=== PATIENT | male | born 1975 | race Two or more races ===

== ENCOUNTER 2017-10-12 17:34 | Inpatient (IN) | payer MEDICAID ==
[~2017-10-12] VITALS: Ht 165.1 cm; Wt 80.0 kg
[2017-10-13 00:22] LABS: Basophils # (auto) 0.1 uL; Basophils % (auto) 0.5 % (0.0-2.0); Eosinophils # (auto) 0 uL; Eosinophils % (auto) 0.3 % (0.0-7.0); Hematocrit 47.7 % (41.0-53.0); Hemoglobin 16.3 g/dL (13.5-17.5); Lymphocytes # (auto) 2.2 uL; Lymphocytes % (auto) 20.5 % (10.0-50.0); Mean Corpuscular Hemoglobin 30.9 pg (28.0-32.0); Mean Corpuscular Hgb Conc. 34.2 g/dL (32.0-36.0); Mean Corpuscular Volume 90.3 fL (80.0-100.0); Monocytes # (auto) 1.1 uL; Monocytes % (auto) 10.2 % (0.0-12.0); Neutrophils # (auto) 7.2 uL; Neutrophils % (auto) 68.5 % (37.0-80.0); Nucleated Red Blood Cells % 0.2 %; Platelet Count (auto) 283 10^3/uL (140-450); Red Blood Cells 5.28 10^6/uL (4.5-5.90); Red Cell Distribution Width 13.2 % (11.8-14.3); White Blood Cell 10.6 10^3/uL (4.4-10.8)
[2017-10-13 00:32] LABS: INR 0.9 (0.9-1.15); Partial Thromboplastin Time 28.9 sec (23.78-33.04); Prothrombin Time 9.7 sec (9.27-12.13)
[2017-10-13 00:36] LABS: Albumin 3.2 g/dL (3.4-5.0); BUN/Creatinine Ratio 13.4; Calcium 8.5 mg/dL (8.5-10.1); Potassium 3.8 mmol/L (3.5-5.1)
[2017-10-13 00:38] LABS: Bilirubin, Total 0.5 mg/dL (0.2-1.0); Total Protein 7.5 g/dL (6.4-8.2)
[2017-10-13] MEDS ORDERED: ONDANSETRON HCL 4 MG/2 ML VIAL IV ONE (02:30)
[2017-10-13] MEDS ORDERED: SODIUM CHLORIDE 0.9% 1,000 ML IV ONE (02:30)
[2017-10-13] MEDS ORDERED: InsuLIN REG 1unit/0.01ml Soln (100units/ml) IV ONE (02:30)
[2017-10-13] MEDS ORDERED: ENOXAPARIN SOD 80 MG/0.8ML SYRINGE SC ONE (02:30)
[2017-10-13] MEDS ORDERED: MORPHINE SULF INJ 2 MG/ML SYRINGE 1ML ONE ×2 (02:45→03:13)
[2017-10-13] MEDS: MORPHINE SULFATE 4 MG/ML SYR/VIAL IV ONE ×2 (02:57→03:15)
[2017-10-13] MEDS ORDERED: LISINOPRIL 10 MG TAB PO ONE (04:00)
[2017-10-13] MEDS ORDERED: MORPHINE SULFATE 4 MG/ML SYR/VIAL IV PRN (04:00)
[2017-10-13] MEDS ORDERED: ACETAMINOPHEN 500 MG TAB PO PRN (04:00)
[2017-10-13] MEDS ORDERED: DEXTROSE (50%) 50ML SYRG IV PRN (04:00)
[2017-10-13] MEDS: HYDROcodone-ACET 5/325MG TAB PO PRN (05:11)
[2017-10-13] MEDS: ACCU-CHEK COMFORT CURVE STRIP VI SCH ×4 (07:19→21:54)
[2017-10-13] MEDS: InsuLIN REG 1unit/0.01ml Soln (100units/ml) SC SCH ×4 (08:30→21:54)
[2017-10-13] MEDS ORDERED: ENOXAPARIN SOD 80 MG/0.8ML SYRINGE SC SCH (10:00)
[2017-10-13] MEDS ORDERED: ceFAZolin 1GM/100ML 100 ML IV ONE (11:34)
[2017-10-13] MEDS: MORPHINE SULFATE 8mg/ml INJ SDV IV PRN ×2 (11:59→21:55)
[2017-10-13] MEDS: ONDANSETRON HCL 4 MG/2 ML VIAL IV PRN ×2 (12:00→21:55)
[2017-10-13 13:00] VITALS: BP 140/88
[2017-10-13] MEDS: SODIUM CHLORIDE 0.9% 1,000 ML IV SCH (14:30)
[2017-10-13 17:00] VITALS: BP 145/81
[2017-10-13] MEDS ORDERED: METF-370 PO (17:40)
[2017-10-13] MEDS: metFORMIN HYDROCHLORIDE 500 MG TAB PO SCH (18:10)
[2017-10-13] MEDS: APIXABAN 5 MG TAB PO SCH (21:54)
[2017-10-13 22:00] VITALS: BP 147/98
[2017-10-14 04:39] VITALS: BP 130/98
[2017-10-14] MEDS: MORPHINE SULFATE 8mg/ml INJ SDV IV PRN ×3 (05:20→19:44)
[2017-10-14] MEDS: ONDANSETRON HCL 4 MG/2 ML VIAL IV PRN ×3 (05:21→19:45)
[2017-10-14] MEDS: ACCU-CHEK COMFORT CURVE STRIP VI SCH ×4 (06:35→21:19)
[2017-10-14] MEDS: InsuLIN REG 1unit/0.01ml Soln (100units/ml) SC SCH ×4 (06:35→21:42)
[2017-10-14] MEDS: metFORMIN HYDROCHLORIDE 500 MG TAB PO SCH ×2 (06:35→17:48)
[2017-10-14 06:43] LABS: Basophils # (auto) 0 uL; Basophils % (auto) 0.3 % (0.0-2.0); Eosinophils # (auto) 0 uL; Eosinophils % (auto) 0.4 % (0.0-7.0); Hematocrit 43.3 % (41.0-53.0); Hemoglobin 15.1 g/dL (13.5-17.5); Lymphocytes # (auto) 1.7 uL; Lymphocytes % (auto) 19.5 % (10.0-50.0); Mean Corpuscular Hemoglobin 31.4 pg (28.0-32.0); Mean Corpuscular Hgb Conc. 34.8 g/dL (32.0-36.0); Mean Corpuscular Volume 90.2 fL (80.0-100.0); Monocytes # (auto) 0.9 uL; Monocytes % (auto) 10.3 % (0.0-12.0); Neutrophils % (auto) 69.5 % (37.0-80.0); Nucleated Red Blood Cells % 0.1 %; Platelet Count (auto) 244 10^3/uL (140-450); Red Cell Distribution Width 12.9 % (11.8-14.3); White Blood Cell 8.7 10^3/uL (4.4-10.8)
[2017-10-14 07:01] LABS: BUN/Creatinine Ratio 23.2; Calcium 8.4 mg/dL (8.5-10.1); Potassium 4.4 mmol/L (3.5-5.1)
[2017-10-14] MEDS: SODIUM CHLORIDE 0.9% 1,000 ML IV SCH (07:10)
[2017-10-14 08:00] VITALS: BP 146/93
[2017-10-14] MEDS ORDERED: ceFAZolin 1GM/100ML 100 ML IV ONE (08:15)
[2017-10-14] MEDS: HYDROcodone-ACET 5/325MG TAB PO PRN (08:33)
[2017-10-14 09:00] VITALS: BP 146/93
[2017-10-14] MEDS ORDERED: LISINOPRIL 10 MG TAB PO SCH (10:00)
[2017-10-14] MEDS: APIXABAN 5 MG TAB PO SCH ×2 (10:17→21:18)
[2017-10-14] MEDS ORDERED: cefTRIAXone 1GM/10ml IVPUSH 10 ML IV ONE (11:15)
[2017-10-14 13:00] VITALS: BP 128/90
[2017-10-14] MEDS: CLINDAMYCIN 600MG IV 50 ML IV SCH ×2 (14:34→21:18)
[2017-10-14 16:51] VITALS: BP 147/99
[2017-10-14 21:49] VITALS: BP 150/98
[2017-10-15] MEDS: MORPHINE SULFATE 8mg/ml INJ SDV IV PRN ×4 (01:56→21:43)
[2017-10-15] MEDS: ONDANSETRON HCL 4 MG/2 ML VIAL IV PRN ×4 (01:56→21:43)
[2017-10-15 04:57] VITALS: BP 138/96
[2017-10-15 06:03] LABS: Calcium 8.5 mg/dL (8.5-10.1); Potassium 4.2 mmol/L (3.5-5.1)
[2017-10-15] MEDS: ACCU-CHEK COMFORT CURVE STRIP VI SCH ×4 (06:10→21:23)
[2017-10-15] MEDS: SODIUM CHLORIDE 0.9% 1,000 ML IV SCH ×2 (06:10→14:56)
[2017-10-15] MEDS: metFORMIN HYDROCHLORIDE 500 MG TAB PO SCH ×2 (06:10→17:35)
[2017-10-15] MEDS: CLINDAMYCIN 600MG IV 50 ML IV SCH ×3 (06:10→15:08)
[2017-10-15] MEDS: InsuLIN REG 1unit/0.01ml Soln (100units/ml) SC SCH ×4 (06:11→21:28)
[2017-10-15] MEDS: cefTRIAXone 1GM/10ml IVPUSH 10 ML IV SCH (08:41)
[2017-10-15 09:11] VITALS: BP 136/89
[2017-10-15] MEDS: APIXABAN 5 MG TAB PO SCH ×2 (10:10→21:23)
[2017-10-15] MEDS: LISINOPRIL 10 MG TAB PO SCH (10:17)
[2017-10-15 13:15] VITALS: BP 141/83
[2017-10-15 17:16] VITALS: BP 140/86
[2017-10-15 22:00] VITALS: BP 132/84
[2017-10-16] MEDS: ONDANSETRON HCL 4 MG/2 ML VIAL IV PRN ×4 (04:04→21:26)
[2017-10-16] MEDS: MORPHINE SULFATE 8mg/ml INJ SDV IV PRN ×4 (04:05→21:26)
[2017-10-16 05:00] VITALS: BP 126/84
[2017-10-16] MEDS: CLINDAMYCIN 600MG IV 50 ML IV SCH ×3 (05:59→21:26)
[2017-10-16] MEDS: ACCU-CHEK COMFORT CURVE STRIP VI SCH ×4 (06:00→21:27)
[2017-10-16] MEDS: metFORMIN HYDROCHLORIDE 500 MG TAB PO SCH ×2 (06:02→18:41)
[2017-10-16] MEDS: InsuLIN REG 1unit/0.01ml Soln (100units/ml) SC SCH ×4 (06:07→21:27)
[2017-10-16 06:16] LABS: Potassium 4.4 mmol/L (3.5-5.1)
[2017-10-16 09:11] VITALS: BP 143/80
[2017-10-16] MEDS: APIXABAN 5 MG TAB PO SCH ×2 (09:46→21:26)
[2017-10-16] MEDS: LISINOPRIL 10 MG TAB PO SCH (09:47)
[2017-10-16] MEDS: cefTRIAXone 1GM/10ml IVPUSH 10 ML IV SCH (09:47)
[2017-10-16] MEDS: SODIUM CHLORIDE 0.9% 1,000 ML IV SCH (09:47)
[2017-10-16 12:32] VITALS: BP 142/84
[2017-10-16 17:00] VITALS: BP 135/71
[2017-10-16 22:00] VITALS: BP 120/69
[2017-10-17] MEDS: MORPHINE SULFATE 8mg/ml INJ SDV IV PRN ×4 (04:34→23:07)
[2017-10-17 05:00] VITALS: BP 121/74
[2017-10-17] MEDS: CLINDAMYCIN 600MG IV 50 ML IV SCH ×3 (06:22→21:48)
[2017-10-17] MEDS: metFORMIN HYDROCHLORIDE 500 MG TAB PO SCH ×2 (06:22→17:08)
[2017-10-17] MEDS: InsuLIN REG 1unit/0.01ml Soln (100units/ml) SC SCH ×4 (06:23→21:59)
[2017-10-17] MEDS: ACCU-CHEK COMFORT CURVE STRIP VI SCH ×4 (06:23→21:49)
[2017-10-17 08:17] VITALS: BP 128/73
[2017-10-17] MEDS: APIXABAN 5 MG TAB PO SCH ×2 (10:22→21:48)
[2017-10-17] MEDS: cefTRIAXone 1GM/10ml IVPUSH 10 ML IV SCH (10:22)
[2017-10-17] MEDS: LISINOPRIL 10 MG TAB PO SCH (10:23)
[2017-10-17 12:31] VITALS: BP 130/80
[2017-10-17 16:16] VITALS: BP 125/80
[2017-10-17 22:00] VITALS: BP 138/89
[2017-10-17] MEDS: ONDANSETRON HCL 4 MG/2 ML VIAL IV PRN (23:07)
[2017-10-18] MEDS: MORPHINE SULFATE 8mg/ml INJ SDV IV PRN ×3 (02:44→21:48)
[2017-10-18 05:00] VITALS: BP 122/80
[2017-10-18] MEDS: CLINDAMYCIN 600MG IV 50 ML IV SCH ×3 (06:21→21:31)
[2017-10-18] MEDS: ACCU-CHEK COMFORT CURVE STRIP VI SCH ×4 (06:22→21:32)
[2017-10-18] MEDS: InsuLIN REG 1unit/0.01ml Soln (100units/ml) SC SCH ×4 (06:34→21:48)
[2017-10-18] MEDS: metFORMIN HYDROCHLORIDE 500 MG TAB PO SCH ×2 (06:34→17:35)
[2017-10-18 06:46] LABS: Calcium 9.2 mg/dL (8.5-10.1); Potassium 4.5 mmol/L (3.5-5.1)
[2017-10-18 09:21] VITALS: BP 119/81
[2017-10-18] MEDS: LISINOPRIL 10 MG TAB PO SCH (10:00)
[2017-10-18] MEDS: cefTRIAXone 1GM/10ml IVPUSH 10 ML IV SCH (10:52)
[2017-10-18] MEDS: APIXABAN 5 MG TAB PO SCH ×2 (10:52→21:31)
[2017-10-18 13:00] VITALS: BP 140/96
[2017-10-18 17:50] VITALS: BP 129/76
[2017-10-18 22:00] VITALS: BP 128/59
[2017-10-19 05:00] VITALS: BP 124/78
[2017-10-19] MEDS: CLINDAMYCIN 600MG IV 50 ML IV SCH ×2 (06:28→14:00)
[2017-10-19] MEDS: metFORMIN HYDROCHLORIDE 500 MG TAB PO SCH (06:29)
[2017-10-19] MEDS: InsuLIN REG 1unit/0.01ml Soln (100units/ml) SC SCH ×2 (06:29→12:06)
[2017-10-19] MEDS: ACCU-CHEK COMFORT CURVE STRIP VI SCH ×2 (06:30→12:06)
[2017-10-19 09:00] VITALS: BP 124/77
[2017-10-19] MEDS: LISINOPRIL 10 MG TAB PO SCH (09:51)
[2017-10-19] MEDS: APIXABAN 5 MG TAB PO SCH (09:51)
[2017-10-19] MEDS: cefTRIAXone 1GM/10ml IVPUSH 10 ML IV SCH (09:51)
[2017-10-19 13:00] VITALS: BP 128/74
[2017-10-19] MEDS ORDERED: LISI10TA6 PO (13:24)
[2017-10-19] MEDS ORDERED: METF500T PO (13:24)
[2017-10-19] MEDS ORDERED: SACC250C PO (13:24)
[2017-10-19] MEDS ORDERED: CLIN1CAP4 PO (13:24)
[2017-10-19 15:34] VITALS: BP 124/77
[2017-10-20] MEDS ORDERED: APIXABAN 5 MG TAB PO SCH (22:00)
== END 2017-10-19 16:48 | disposition home or self-care (01) | DRG 197 ==
LOC: ER 17:34 → TELE 17:35 → TELE-EAST 10-13 09:53
PROVIDERS: ADMIT Nurse Practitioner Family; ATTEND Internal Medicine
DX: I82.411 Acute embolism and thrombosis of right femoral vein (principal); E11.65 Type 2 diabetes mellitus with hyperglycemia; E87.1 Hypo-osmolality and hyponatremia; L03.115 Cellulitis of right lower limb; I82.431 Acute embolism and thrombosis of right popliteal vein; I10 Essential (primary) hypertension; W01.0XXA Fall on same level from slipping, tripping and stumbling without subsequent striking against object, initial encounter; Z91.14 Patient's other noncompliance with medication regimen; Z79.84 Long term (current) use of oral hypoglycemic drugs; Y93.89 Activity, other specified; Y92.89 Other specified places as the place of occurrence of the external cause; Y99.8 Other external cause status; Z71.3 Dietary counseling and surveillance
CPT/HCPCS: 36415; 73562; 73700; 80048; 80053; 80061; 81241; 82962; 83036; 83735; 85025; 85302; 85305; 85306; 85379; 85610; 85613; 85670; 85705; 85730; 85732; 86141; 86147; 87040; 93971; 96361; 96372; 96374; 96375; J0690; J1815; J2270; J2405; J3490

== ENCOUNTER 2020-12-19 11:05 | Emergency (ER) | payer SELFPAY ==
[~2020-12-19] VITALS: Ht 165.1 cm; Wt 78.9 kg
[~2020-12-19 11:05] MED LIST: CLIN300C8 PO; LISI-716 PO; METF500T PO; SACC250C PO
[2020-12-19] MEDS ORDERED: cloNIDine HCL 0.1 MG TAB PO ONE (11:15)
[2020-12-19 11:51] LABS: Basophils # (auto) 0.1 10 ^3/uL (0-0.2); Basophils % (auto) 0.8 % (0.0-2.0); Eosinophils # (auto) 0 10 ^3/uL (0-0.8); Eosinophils % (auto) 0.7 % (0.0-7.0); Hematocrit 47.6 % (41.0-53.0); Hemoglobin 16.8 g/dL (13.5-17.5); Lymphocytes # (auto) 2.6 10 ^3/uL (0.4-5.4); Lymphocytes % (auto) 38.9 % (10.0-50.0); Mean Corpuscular Hgb Conc. 35.2 g/dL (32.0-36.0); Monocytes # (auto) 0.6 10 ^3/uL (0-1.3); Monocytes % (auto) 8.4 % (0.0-12.0); Neutrophils # (auto) 3.4 10 ^3/uL (1.6-8.6); Neutrophils % (auto) 51.2 % (37.0-80.0); Nucleated Red Blood Cells % 0.1 %; Red Blood Cells 5.41 10^6/uL (4.5-5.90); White Blood Cell 6.6 10^3/uL (4.4-10.8)
[2020-12-19 12:17] LABS: Albumin 3.9 g/dL (3.4-5.0); Anion Gap 5 (5-15); Blood Urea Nitrogen 14 mg/dL (7-18); Calcium 8.8 mg/dL (8.5-10.1); Carbon Dioxide 25 mmol/L (21-32); Chloride 100 mmol/L (98-107); Glucose 376 mg/dL (74-106); Potassium 3.9 mmol/L (3.5-5.1); Sodium 130 mmol/L (136-145)
[2020-12-19 12:24] LABS: Alanine Aminotransferase 139 U/L (16-61); Alkaline Phosphatase 82 U/L (45-117); Aspartate Aminotransferase 70 U/L (15-37); BUN/Creatinine Ratio 15.6; GFR African American 116 mL/min; GFR Non-African American 96 mL/min; Total Protein 8.2 g/dL (6.4-8.2)
[2020-12-19 12:54] VITALS: BP 125/77
== END 2020-12-19 12:57 | disposition home or self-care (01) ==
LOC: ER 11:05
DX: I16.0 Hypertensive urgency (principal); E11.65 Type 2 diabetes mellitus with hyperglycemia; F14.10 Cocaine abuse, uncomplicated
CPT/HCPCS: 36415; 80053; 84484; 85025; 93005

== ENCOUNTER 2020-12-24 18:54 | Emergency (ER) | payer SELFPAY ==
[~2020-12-24] VITALS: Ht 165.1 cm; Wt 79.4 kg
[2020-12-24] MEDS ORDERED: glipiZIDE 5 MG TAB PO ONE (20:00)
[2020-12-24 21:00] VITALS: BP 159/99
== END 2020-12-25 01:08 | disposition home or self-care (01) ==
LOC: ER 18:55
DX: I16.0 Hypertensive urgency (principal); I10 Essential (primary) hypertension; E11.65 Type 2 diabetes mellitus with hyperglycemia